=== PATIENT | male | born 1995 | race Caucasian/White ===

== ENCOUNTER 2017-07-01 19:39 | Inpatient (IN) | payer OTHER ==
[~2017-07-01] VITALS: Ht 195.6 cm; Wt 111.4 kg
[~2017-07-01 19:39] MED LIST: MORPHINE SULFATE 4 MG/ML INJ IV PUSH ONE; ONDANSETRON HCL 4 MG/2 ML VIAL IV PUSH ONE; Z.0.NO CURRENT MEDS
[2017-07-01 19:40] VITALS: O2SAT 100
[2017-07-01] MEDS ORDERED: ONDANSETRON HCL 4 MG/2 ML VIAL ONE (19:43)
[2017-07-01] MEDS ORDERED: PROPOFOL 200 MG/20 ML AMP ONE (19:45)
[2017-07-01] MEDS ORDERED: IOHEXOL 350 MG/ML 10 ML VIAL (for RAD DIAG) IV ONE (20:04)
[2017-07-01 20:06] LABS: AUTOMATED NEUTROPHIL # 12.3 TH/MM3 (1.8-7.7); BASOPHIL # 0.1 TH/MM3 (0-0.2); BASOPHIL % 0.3 % (0.0-2.0); EOSINOPHIL # 0.1 TH/MM3 (0-0.4); EOSINOPHIL % 0.9 % (0.0-4.0); HEMATOCRIT 43.2 % (39.0-51.0); HEMO FLAGS DIFF FINAL; LYMPH % 16.9 % (9.0-44.0); LYMPHOCYTE # 2.8 TH/MM3 (1.0-4.8); MEAN CELL VOLUME 88.6 FL (80.0-100.0); MEAN CORPUSCULAR HEMOGLOBIN 30.1 PG (27.0-34.0); MEAN CORPUSCULAR HGB CONC 33.9 % (32.0-36.0); MONO % 6.9 % (0.0-8.0); PLATELET COUNT 254 TH/MM3 (150-450); RED BLOOD COUNT 4.87 MIL/MM3 (4.50-5.90); WHITE BLOOD COUNT 16.4 TH/MM3 (4.0-11.0)
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
[2017-07-01 20:14] LABS: I-STAT POTASSIUM 3.7 MMOL/L (3.5-4.9)
[2017-07-01] MEDS ORDERED: HYDROmorphone HCL PF 1 MG/ML VIAL IVP PRN (20:15)
[2017-07-01] MEDS ORDERED: CHLORHEXIDINE GLUCONATE 2 % 1 PACK (2 CLOTHS) TOP PRN (20:15)
[2017-07-01] MEDS ORDERED: LIDOCAINE HCL 1% 50 ML VIAL INFIL ONE (20:15)
[2017-07-01] MEDS ORDERED: MISCELLANEOUS NURSING INFORMATION XX SCH (20:15)
[2017-07-01 20:16] VITALS: RESP 23; O2SAT 100
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
[2017-07-01 20:37] LABS: APTT (PATIENT) 22.4 SEC (24.3-30.1); PROTHROMBIN TIME - PATIENT 11.1 SEC (9.8-11.6)
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
[2017-07-01 21:00] VITALS: BP 166/68; PULSE 90; RESP 22; O2SAT 98
[2017-07-01] MEDS: DOCUSATE SODIUM 100 MG CAP PO SCH (21:00)
[2017-07-01] MEDS: LACTATED RINGER'S 1000 ML INJ 1,000 ML IV SCH (21:20)
[2017-07-01] MEDS: HYDROmorphone HCL PF 1 MG/ML VIAL IVP PRN ×2 (21:20→22:46)
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
[2017-07-01] MEDS: LIDOCAINE HCL 5% PATCH T-DERMAL SCH (23:00)
[2017-07-01 23:25] VITALS: TEMP 99.8
[2017-07-01 23:55] VITALS: PULSE 105
[2017-07-02] VITALS (9 sets, daily range): BP systolic 114–150; BP diastolic 53–94; PULSE 104–126; RESP 18–19; TEMP 96.9–101.2; O2SAT 92–99
[2017-07-02] MEDS: HYDROmorphone HCL PF 1 MG/ML VIAL IVP PRN ×3 (00:50→05:58)
[2017-07-02] MEDS ORDERED: CHLORHEXIDINE GLUCONATE 2 % 1 PACK (2 CLOTHS) TOP SCH (04:00)
[2017-07-02] MEDS ORDERED: LACTATED RINGER'S 1000 ML IV PRN (04:30)
[2017-07-02] MEDS ORDERED: SODIUM CHLORID 0.9% 500 ML IV PRN (04:30)
[2017-07-02] MEDS ORDERED: INSULIN HUMAN REGULAR 1,000 UNITS/10 ML VIAL SQ PRN (04:30)
[2017-07-02] MEDS ORDERED: METOPROLOL TARTRATE 25 MG TAB PO PRN (04:30)
[2017-07-02] MEDS ORDERED: POVIDONE IODINE 5% (ANTISEPSIS KIT) 4 APPLICATIONS EACH NARE PRN (04:30)
[2017-07-02] MEDS ORDERED: CHLORHEXIDINE GLUCONATE 2 % 1 PACK (2 CLOTHS) TOPICAL PRN (04:30)
[2017-07-02] MEDS: LACTATED RINGER'S 1000 ML INJ 1,000 ML IV SCH ×3 (05:38→05:58)
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
[2017-07-02] MEDS ORDERED: fentaNYL CITRATE 250 MCG/5 ML AMP ONE (07:22)
[2017-07-02] MEDS ORDERED: ACETAMINOPHEN 1000 MG/100 ML VIAL IV ONE (07:22)
[2017-07-02] MEDS ORDERED: MIDAZOLAM HCL 2 MG/2 ML VIAL ONE ×2 (07:25→07:43)
[2017-07-02] MEDS ORDERED: MORPHINE SULFATE 4 MG/ML INJ ONE (07:43)
[2017-07-02] MEDS ORDERED: PANTOPRAZOLE SODIUM 40 MG VIAL IV PUSH SCH (08:00)
[2017-07-02] MEDS ORDERED: VANCOMYCIN HCL 1000 MG VIAL ONE (08:24)
[2017-07-02] MEDS ORDERED: ceFAZolin INJ 1,000 MG VIAL ONE (08:24)
[2017-07-02] MEDS ORDERED: GENTAMICIN SULFATE 80 MG/2 ML VIAL ONE (08:25)
[2017-07-02] MEDS ORDERED: BUPIVACAINE/EPINEPHRINE 0.5% 50 ML VIAL ONE (08:25)
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
[2017-07-02] MEDS: DOCUSATE SODIUM 100 MG CAP PO SCH (09:00)
[2017-07-02] MEDS ORDERED: LACTATED RINGER'S 1000 ML INJ 1,000 ML IV SCH (09:43)
[2017-07-02] MEDS ORDERED: diphenhydrAMINE HCL 25 MG CAP PO PRN (09:45)
[2017-07-02] MEDS ORDERED: ONDANSETRON HCL 4 MG/2 ML VIAL IVP PRN (09:45)
--- NOTE | 2017-07-02 09:51 | PD.OP ---
cc: Justin Mejia MD Operative Report Date of Surgery: Jul 02, 2017 Preoperative Diagnosis: Displaced right tibia shaft fracture Postoperative Diagnosis: Procedure: Reduction and intramedullary nail fixation right tibia Anesthesia: Gen. Surgeon: Justin Mejia [employer] Coordinator(s): DEEPTI Sainz PA-C The surgical procedure was assisted by my physician billing assistant. My P.A. presence was necessary throughout this case for the manipulation and positioning of the surgical extremity. My P.A. was assisting me throughout the duration of this procedure. The skill set of a physician billing assistant was medically necessary to complete this procedure. During the surgical case the surgical dental assistant was working at the back table and the physician billing assistant was directly assisting me. Operation and Findings: Implants: synthes 405 mm x [11]mm tibial nail Plan of activity: Toe-touch weightbearing bilateral lower extremity Patient was seen and examined preoperatively. An informed consent was obtained from patient after detailed discussion of risk and benefits. Risks of surgery include bleeding, infection, painful hardware, nonunion, malunion, leg length discrepancy, need for hardware removal, and medical complications associated with anesthesia including blood clots, stroke, heart attack, and were discussed. Operative site was marked. Patient was brought to the operating room placed on or table. Patient received IV antibiotics and was given IV sedation GETA. Right leg was prepped with alcohol Hibiclens and draped in usual sterile fashion. Timeout procedure was performed Procedure began with reduction of fracture. 2 small incisions were made around the fracture site. A percutaneous clamp was placed. Traction was applied. Fracture was reduced. There was comminution of the fracture. The fracture reduced and excellent alignment was achieved. Fracture clamp was used to aid in reduction. Next a 3 cm incision was made proximal to the patella. Quadriceps tendon was split in line with fibers. Cannulas were placed in the patellofemoral joint to protect the articular surface at all times. A guidepin was placed into the tibia and advanced in the tibial canal. Fluoroscopy was used to confirm appropriate guidepin placement. An opening reamer was used to open the tibial canal. A ball-tipped guidewire was advanced down the tibial canal. Guidepin was passed across the fracture site into the center of the distal tibia. Fluoroscopy confirmed guidepin placement. The nail length was now measured. The fracture was now held in a reduced position and the canal was reamed. The canal was reamed up to appropriate size. A Synthes nail was now selected. Next the nail was fully seated. At this point the fracture displaced slightly. The nail was partially removed. A blocking screw was now placed along the proximal aspect of the distal segment to correct this displacement. The nail was now fully seated again. The fracture remained in excellent alignment. Using perfect [place] technique 2 distal interlocking screws were placed. Using the insertion handle as a guide 2 proximal interlocking screws were placed. Fluoroscopy confirmed excellent of fracture with well-placed hardware. Incisions and the knee joint were thoroughly irrigated with sterile saline. Fascia was closed with #1 Vicryl, subcutaneous tissues closed with 3-0 Vicryl and skin was closed with charbel. Sterile dressings were applied. Patient was awakened and transferred to recovery in stable condition. Justin Mejia MD Jul 02, 2017 09:51
[2017-07-02] MEDS ORDERED: *MEPERIDINE 25 MG INJ VIAL PERIprocedural Use ONLY ONE (10:08)
[2017-07-02] MEDS ORDERED: *LABETALOL HCL 100 MG/20 ML VIAL PERIprocedural Use ONLY ONE (10:14)
[2017-07-02] MEDS ORDERED: ERGOCALCIFEROL (VIT D2) 50,000 UNIT CAP PO SCH (11:00)
[2017-07-02] MEDS ORDERED: DO NOT ADM ANY ANTICOAGULANT DRUGS PRN (11:45)
[2017-07-02] MEDS: MORPHINE SULFATE 4 MG/ML INJ IV PUSH PRN ×3 (11:57→23:10)
[2017-07-02] MEDS: LIDOCAINE HCL 5% PATCH T-DERMAL SCH (11:57)
[2017-07-02] MEDS: CALCIUM/VITAMIN D 250 MG/125 U TAB PO SCH ×2 (11:58→17:48)
[2017-07-02] MEDS: ceFAZolin 2 GM PREMIX 50 ML IV SCH ×2 (11:58→21:42)
[2017-07-02] MEDS ORDERED: ONDANSETRON HCL 4 MG/2 ML VIAL IV PUSH ONE (12:00)
[2017-07-02] MEDS ORDERED: NEOSTIGMINE 3 MG/3 ML SYR IV ONE (12:00)
[2017-07-02] MEDS ORDERED: LACTATED RINGER'S 1000 ML INJ 2,000 ML IV ONE (12:00)
[2017-07-02] MEDS ORDERED: PROPOFOL 200 MG/20 ML AMP IV ONE (12:00)
[2017-07-02] MEDS ORDERED: platform walker (12:06)
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
--- NOTE | 2017-07-02 14:27 | HHI.PR ---
Subjective Subjective Notes S/P Right tibia IM nail Pain controlled Objective Vitals/I&O Vital Signs Date Time Temp Pulse Resp B/P Pulse Ox O2 Delivery O2 Flow Rate FiO2 07/02/17 11:15 97.5 104 18 150/94 99 07/02/17 10:45 Nasal Cannula 2 Labs Laboratory Tests Test 07/01/17 07/01/17 07/02/17 19:45 22:03 06:15 White Blood Count 16.4 Red Blood Count 4.87 Hemoglobin 14.7 Bedside Hemoglobin 12.9 Hematocrit 43.2 Bedside Hematocrit 38.0 Mean Corpuscular Volume 88.6 Mean Corpuscular Hemoglobin 30.1 Mean Corpuscular Hemoglobin 33.9 Concent Red Cell Distribution Width 13.0 Platelet Count 254 Mean Platelet Volume 7.5 Neutrophils (%) (Auto) 75.0 Lymphocytes (%) (Auto) 16.9 Monocytes (%) (Auto) 6.9 Eosinophils (%) (Auto) 0.9 Basophils (%) (Auto) 0.3 Neutrophils # (Auto) 12.3 Lymphocytes # (Auto) 2.8 Monocytes # (Auto) 1.1 Eosinophils # (Auto) 0.1 Basophils # (Auto) 0.1 CBC Comment DIFF FINAL Differential Comment Prothrombin Time 11.1 Prothromb Time International 1.0 Ratio Activated Partial 22.4 Thromboplast Time Bedside Sodium 143 Bedside Potassium 3.7 Bedside Chloride 109 Bedside Blood Urea Nitrogen 14 Bedside Creatinine 1.1 Bedside Glucose 90 Ethyl Alcohol Level 169 Blood Type O POSITIVE Antibody Screen NEGATIVE Crossmatch Leukocyte-Reduced Red Blood Cells Blood Bank Comment Antibody Identification Non-Specific Cold Agglutinin Nasal Screen MRSA (PCR) MRSA NOT DETECTED Radiology Last Impressions Chest X-Ray 07/02/17 0600 Signed Impressions: Service Date/Time: Sunday, July 02, 2017 05:52 - CONCLUSION: No acute disease. Tony Tolentino MD Pelvis X-Ray 07/01/171941 Signed Impressions: Service Date/Time: Saturday, July 01, 2017 19:07 - CONCLUSION: 1. See CT report. Sacral and acetabular fracture not well evaluated. Viraj Worthy MD Head CT 07/01/171941 Signed Impressions: Service Date/Time: Saturday, July 01, 2017 19:56 - CONCLUSION: 1. No acute intracranial abnormalities. Viraj Worthy MD Chest CT 07/01/171941 Signed Impressions: Service Date/Time: Saturday, July 01, 2017 20:03 - CONCLUSION: 1. Mildly displaced sternal fracture with mediastinal hematoma anteriorly measuring up to about 1.8 cm in thickness. No evidence for traumatic aortic injury. No pneumothorax or hemothorax. Viraj Worthy MD Cervical Spine CT 07/01/171941 Signed Impressions: Service Date/Time: Saturday, July 01, 2017 19:56 - CONCLUSION: 1. Nondisplaced fracture through left lateral mass of C6 extending into the left pedicle. No other cervical spine fractures. No spondylolisthesis. Viraj Worthy MD Abdomen/Pelvis CT 07/01/171941 Signed Impressions: Service Date/Time: Saturday, July 01, 2017 20:03 - CONCLUSION: 1. Relatively nondisplaced fractures through the right sacral ala and left acetabulum. No dislocation. No solid visceral injury identified within the abdomen or pelvis. Viraj Worthy MD Wrist X-Ray 07/01/17 Signed Impressions: Service Date/Time: Saturday, July 01, 2017 21:25 - CONCLUSION: 1. Mildly displaced scaphoid or navicular fracture. Fracture distal radius. Viraj Worthy MD Tibia/Fibula X-Ray 07/01/17 Signed Impressions: Service Date/Time: Saturday, July 01, 2017 19:07 - CONCLUSION: 1. Distal tibial and fibular fractures. Viraj Worthy MD Maxillofacial CT 07/01/17 Signed Impressions: Service Date/Time: Saturday, July 01, 2017 19:56 - CONCLUSION: 1. No acute findings. Small retention cysts in the maxillary sinuses. Viraj Worthy MD Knee X-Ray 07/01/17 Signed Impressions: Service Date/Time: Saturday, July 01, 2017 19:07 - CONCLUSION: 1. No displaced fracture identified at the right knee. Viraj Worthy MD Hand X-Ray 07/01/17 Signed Impressions: Service Date/Time: Saturday, July 01, 2017 19:07 - CONCLUSION: 1. Fractures of distal radius and midpole scaphoid. No dislocation. Viraj Worthy MD Narrative Exam GENERAL: 21 year old well-nourished, well developed male lying in bed with cervical collar on. SKIN: Warm and dry. Laceration noted to lip. HEAD: Normocephalic. ENT: No nasal bleeding or discharge. Mucous membranes pink and moist. NECK: Trachea midline. No JVD. [place] J collar in place. CARDIOVASCULAR: Regular rate and rhythm. RESPIRATORY: No accessory muscle use. Lungs clear to auscultation. Breath sounds equal bilaterally. GASTROINTESTINAL: Abdomen soft, non-tender, nondistended. + BS. MUSCULOSKELETAL: Extremities without cyanosis, or edema. RUE and RLE soft splint in place. MAEW. NEUROLOGICAL: Awake and alert. Normal speech. A/P Assessment and Plan INJURIES: C6 fx Sternal fx RIGHT sacral ala fx (non-op) LEFT acetabulum fx (non-op) RIGHT tib/fib fx RIGHT distal radius and scaphoid fx (non-op) RIGHT dorsal hand lac Diet: Regular Pulm: IS Pain: Toradol IV, Lidoderm patch, Morphine IV, [place] Activity: OOB. PT and OT ordered. (NWB RUE, TTWB BLE for transfers) GI: Pepcid Bowel: Mica-colace 2 tabs, Lactulose PRN LBM 0 DVT: SCDs, Lovenox 30 BID C6 fx Neurosurgery consulted Nonoperative management Maintain cervical collar Pain control OOBPT Sternal fx Supportive care Echocardiogram pending Pain control Pulmonary toileting RIGHT sacral ala fx, LEFT acetabulum fx Orthopedics consulted Nonoperative management Pain control OOBPT TTWB BLE for transfers Lovenox RIGHT tib/fib fx Orthopedics consulted S/P Right tibia IM nail Pain control OOBPT TTWB BLE for transfers RIGHT distal radius and scaphoid fx, RIGHT dorsal hand lac Orthopedics consulted Non-operative management Pain control Hand sx consulted- awaiting evaluation OT NWB RUE Plan of care discussed with patient and family at bedside. Case management consulted to assist with discharge planning. Remarks seen and examined with DIE FORGER-agree with assessment and plan s/p IM nailing right tibia NS input appreciated ortho input appreciated monitor HR pain control Fiorella Hodges Jul 02, 2017 14:26 Allie Tirado MD Jul 03, 2017 16:24
[2017-07-02] MEDS ORDERED: LACTULOSE SYRUP 20 GM/30 ML CUP PO PRN (14:30)
[2017-07-02] MEDS: KETOROLAC TROMETHAMINE 30 MG/ML (IVP) VIAL IVP SCH ×2 (15:00→21:45)
--- NOTE | 2017-07-02 15:10 | RADRPT ---
EXAM DATE/TIME: 07/02/2017 14:25 [facility] COMPARISON: No previous studies available for comparison. INDICATIONS : Left ankle pain. MEDICAL HISTORY : None. SURGICAL HISTORY : None. ENCOUNTER: Initial ACUITY: 2 days PAIN SCORE: 7/10 LOCATION: Left ankle FINDINGS: Two view exam was performed of the left ankle. The bony structures are in normal alignment. Mild sof t tissue swelling is seen along the lateral malleolus. Bony structures are intact without evidence of fracture or dislocation. No radiopaque foreign bodies are seen. Bony mineralization is normal. CONCLUSION: Soft tissue swelling without evidence of acute fracture or dislocation. Leland Osborn MD on July 02, 2017 at 15:07 Board Certified Radiologist. This report was verified electronically.
--- NOTE | 2017-07-02 16:23 | EKG ---
Date Performed: 07/01/2017 Time Performed: 20:18:26 PTAGE: 89 years EKG: SINUS TACHYCARDIA ABNORMAL RHYTHM ECG NO PREVIOUS TRACING DOCTOR: Shawn Santoro Interpretating Date/Time 07/02/2017 16:20:22
[2017-07-02] MEDS: ACETAMINOPHEN/HYDROcodone 325 MG/10 MG TAB PO PRN (17:48)
--- NOTE | 2017-07-02 20:18 | RADRPT ---
EXAM DATE/TIME: 07/02/2017 08:53 [facility] COMPARISON: No previous studies available for comparison. INDICATIONS : Right tibia fracture repair with intermedullary juan. OR. MEDICAL HISTORY : None. SURGICAL HISTORY : None. ENCOUNTER: Initial ACUITY: 1 day PAIN SCORE: Non-responsive. LOCATION: Right tibia FINDINGS: Two view examination of the right tibia demonstrates juan fixation across a tibial shaft fracture. The re is also a fibular shaft fracture. CONCLUSION: 1. Juan fixation of a tibial shaft fracture. Viraj Worthy MD on July 02, 2017 at 20:13 Board Certified Radiologist. This report was verified electronically.
[2017-07-02] MEDS: VANCOMYCIN INJ 1,000 MG in SODIUM CHLOR 0.9% 250 ML INJ 250 ML IV SCH (21:44)
[2017-07-02] MEDS: DOCUSATE SODIUM 50 MG/SENNA 8.6 MG TAB PO SCH (21:45)
[2017-07-02 22:02] LABS: AUTOMATED NEUTROPHIL # 5.6 TH/MM3 (1.8-7.7); BASOPHIL % 0.3 % (0.0-2.0); EOSINOPHIL % 0.2 % (0.0-4.0); HEMATOCRIT 34.1 % (39.0-51.0); HEMO FLAGS DIFF FINAL; LYMPH % 14.9 % (9.0-44.0); LYMPHOCYTE # 1.2 TH/MM3 (1.0-4.8); MEAN CELL VOLUME 89.2 FL (80.0-100.0); MEAN CORPUSCULAR HEMOGLOBIN 30.7 PG (27.0-34.0); MEAN CORPUSCULAR HGB CONC 34.4 % (32.0-36.0); MONO % 12.9 % (0.0-8.0); NEUT % 71.7 % (16.0-70.0); PLATELET COUNT 156 TH/MM3 (150-450); RED BLOOD COUNT 3.83 MIL/MM3 (4.50-5.90); RED CELL DISTRIBUTION WIDTH 12.8 % (11.6-17.2); WHITE BLOOD COUNT 7.8 TH/MM3 (4.0-11.0)
[2017-07-02 22:11] LABS: BICARBONATE 27.8 MEQ/L (21.0-32.0); POTASSIUM 3.8 MEQ/L (3.5-5.1)
[2017-07-02] MEDS: ACETAMINOPHEN 325 MG TAB PO PRN (23:20)
[2017-07-03] VITALS (7 sets, daily range): BP systolic 129–142; BP diastolic 64–75; PULSE 102–127; RESP 18–20; TEMP 96.8–100.7; O2SAT 91–99
--- NOTE | 2017-07-03 06:54 | PD.ORT.PN ---
Subjective Subjective Remarks s/p Right tibia IMN s/p right scaphoid/radial styloid fx s/p left Acetabulum and right sacral fxs -doing well. states pain but controlled Objective Vitals Vital Signs Date Time Temp Pulse Resp B/P Pulse Ox O2 Delivery O2 Flow Rate FiO2 07/03/17 02:45 98.0 102 18 129/66 94 07/02/17 23:20 101.2 07/02/17 22:55 99.9 126 18 136/61 92 07/02/17 20:10 98.0 117 19 114/53 92 07/02/17 16:00 96.9 118 18 134/64 92 07/02/17 12:18 97 Nasal Cannula 2.00 07/02/17 11:15 97.5 104 18 150/94 99 07/02/17 10:45 98.8 93 16 166/79 100 Nasal Cannula 2 07/02/17 10:30 96 18 165/78 96 Nasal Cannula 3 07/02/17 10:15 103 19 184/89 96 Nasal Cannula 3 07/02/17 10:08 98.9 106 20 186/96 94 Nasal Cannula 3 07/02/17 07:22 99.2 125 18 149/83 93 I/O 07/02/17 07/02/17 07/02/17 07/03/17 07/03/17 07/03/17 06:59 14:59 22:59 06:59 14:59 22:59 Intake Total 964 ml 2151 ml 360 ml 480 ml Output Total 550 ml 900 ml 900 ml Balance 964 ml 1601 ml -540 ml -420 ml Intake Oral 0 ml 480 ml 360 ml 480 ml IV Total 964 ml 471 ml Other 1200 ml Output Urine Total 500 ml 900 ml 900 ml Estimated Blood Loss 50 ml # Voids 1 # Bowel Movements 0 0 0 0 Result Diagram: 07/02/17204207/02/172042 Imaging Last 24 hours Impressions Chest X-Ray 07/02/17 0600 Signed Impressions: Service Date/Time: Sunday, July 02, 2017 05:52 - CONCLUSION: No acute disease. Tony Tolentino MD Pelvis X-Ray 07/01/171941 Signed Impressions: Service Date/Time: Saturday, July 01, 2017 19:07 - CONCLUSION: 1. See CT report. Sacral and acetabular fracture not well evaluated. Viraj Worthy MD Head CT 07/01/171941 Signed Impressions: Service Date/Time: Saturday, July 01, 2017 19:56 - CONCLUSION: 1. No acute intracranial abnormalities. Viraj Worthy MD Chest X-Ray 07/01/171941 Signed Impressions: Service Date/Time: Saturday, July 01, 2017 19:07 - CONCLUSION: 1. No acute findings. Dependent atelectasis in the lungs. Viraj Worthy MD Chest CT 07/01/171941 Signed Impressions: Service Date/Time: Saturday, July 01, 2017 20:03 - CONCLUSION: 1. Mildly displaced sternal fracture with mediastinal hematoma anteriorly measuring up to about 1.8 cm in thickness. No evidence for traumatic aortic injury. No pneumothorax or hemothorax. Viraj Worthy MD Cervical Spine CT 07/01/171941 Signed Impressions: Service Date/Time: Saturday, July 01, 2017 19:56 - CONCLUSION: 1. Nondisplaced fracture through left lateral mass of C6 extending into the left pedicle. No other cervical spine fractures. No spondylolisthesis. Viraj Worthy MD Abdomen/Pelvis CT 07/01/171941 Signed Impressions: Service Date/Time: Saturday, July 01, 2017 20:03 - CONCLUSION: 1. Relatively nondisplaced fractures through the right sacral ala and left acetabulum. No dislocation. No solid visceral injury identified within the abdomen or pelvis. Viraj Worthy MD Objective Remarks RUE: +sugar tong splint. NVI with good sensation to fingers. good finger extension. RLE: dressings clean and dry. intact. NVI. neg carol. stiffness to ankle dorsiflexion. Assessment & Plan Assessment and Plan 1) Left Nondisplaced Acetabulum Fx - nonop 2) Right Sacral fx - nonop 3) Right Radial Styloid fx - nonop 4) right Scaphoid Fx - nonop -NWB -maintain splint 5) Right Tibial shaft fx s/p IMN - POD 1 -TTWB BLE for transfers only -daily dressing changes right leg POD 2 -CM for rehab placement -lovenox for DVT prophylaxis Severo Bergeron Jul 03, 2017 06:54
[2017-07-03] MEDS ORDERED: XARE10TA PO (06:55)
[2017-07-03] MEDS ORDERED: WHEEMIS3 (06:55)
[2017-07-03] MEDS ORDERED: HYDR-3583 PO (06:55)
[2017-07-03] MEDS: KETOROLAC TROMETHAMINE 30 MG/ML (IVP) VIAL IVP SCH (06:58)
[2017-07-03] MEDS: ceFAZolin 2 GM PREMIX 50 ML IV SCH (06:59)
[2017-07-03] MEDS: MORPHINE SULFATE 4 MG/ML INJ IV PUSH PRN ×4 (07:08→20:34)
[2017-07-03] MEDS: DOCUSATE SODIUM 50 MG/SENNA 8.6 MG TAB PO SCH ×2 (08:57→20:35)
[2017-07-03] MEDS: VANCOMYCIN INJ 1,000 MG in SODIUM CHLOR 0.9% 250 ML INJ 250 ML IV SCH (08:57)
[2017-07-03] MEDS: CALCIUM/VITAMIN D 250 MG/125 U TAB PO SCH ×3 (08:57→17:29)
[2017-07-03] MEDS: ASCORBIC ACID 500 MG TAB PO SCH (08:57)
[2017-07-03] MEDS: CHOLECALCIFEROL (VIT D3) 1000 UNIT TAB PO SCH (08:57)
[2017-07-03] MEDS: FAMOTIDINE 20 MG TAB PO SCH ×2 (08:57→20:35)
[2017-07-03] MEDS: LIDOCAINE HCL 5% PATCH T-DERMAL SCH (09:00)
[2017-07-03] MEDS: ENOXAPARIN SODIUM 30 MG/0.3 ML SYRINGE SQ SCH ×2 (09:09→20:34)
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
[2017-07-03 09:36] LABS: AUTOMATED NEUTROPHIL # 7.6 TH/MM3 (1.8-7.7); BASOPHIL % 0.2 % (0.0-2.0); EOSINOPHIL % 0.5 % (0.0-4.0); HEMATOCRIT 31.7 % (39.0-51.0); HEMO FLAGS DIFF FINAL; LYMPH % 9.6 % (9.0-44.0); LYMPHOCYTE # 0.9 TH/MM3 (1.0-4.8); MEAN CELL VOLUME 88.6 FL (80.0-100.0); MEAN CORPUSCULAR HEMOGLOBIN 31.4 PG (27.0-34.0); MEAN CORPUSCULAR HGB CONC 35.4 % (32.0-36.0); MONO % 9.6 % (0.0-8.0); NEUT % 80.1 % (16.0-70.0); PLATELET COUNT 139 TH/MM3 (150-450); RED BLOOD COUNT 3.57 MIL/MM3 (4.50-5.90); RED CELL DISTRIBUTION WIDTH 12.6 % (11.6-17.2); WHITE BLOOD COUNT 9.4 TH/MM3 (4.0-11.0)
[2017-07-03 10:33] LABS: BICARBONATE 26.5 MEQ/L (21.0-32.0); POTASSIUM 3.9 MEQ/L (3.5-5.1)
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
--- NOTE | 2017-07-03 13:45 | HHI.PR ---
Subjective Subjective Notes OOB in cardiac chair Pain controlled Tachycardic and febrile overnight. + Troponin, EKG with sinus tachycardia. No CP Echo negative for cardiac contusion Objective Vitals/I&O Vital Signs Date Time Temp Pulse Resp B/P Pulse Ox O2 Delivery O2 Flow Rate FiO2 07/03/17 12:00 96.9 110 18 132/73 99 07/03/17 09:01 Nasal Cannula 2.00 Labs Laboratory Tests Test 07/02/17 07/03/17 07/03/17 20:43 01:19 08:59 White Blood Count 7.8 9.4 Red Blood Count 3.83 3.57 Hemoglobin 11.7 11.2 Hematocrit 34.1 31.7 Mean Corpuscular Volume 89.2 88.6 Mean Corpuscular Hemoglobin 30.7 31.4 Mean Corpuscular Hemoglobin 34.4 35.4 Concent Red Cell Distribution Width 12.8 12.6 Platelet Count 156 139 Mean Platelet Volume 7.6 8.0 Neutrophils (%) (Auto) 71.7 80.1 Lymphocytes (%) (Auto) 14.9 9.6 Monocytes (%) (Auto) 12.9 9.6 Eosinophils (%) (Auto) 0.2 0.5 Basophils (%) (Auto) 0.3 0.2 Neutrophils # (Auto) 5.6 7.6 Lymphocytes # (Auto) 1.2 0.9 Monocytes # (Auto) 1.0 0.9 Eosinophils # (Auto) 0.0 0.0 Basophils # (Auto) 0.0 0.0 CBC Comment DIFF FINAL DIFF FINAL Differential Comment Sodium Level 133 135 Potassium Level 3.8 3.9 Chloride Level 99 102 Carbon Dioxide Level 27.8 26.5 Anion Gap 6 7 Blood Urea Nitrogen 10 9 Creatinine 1.11 1.22 Estimat Glomerular Filtration 83 74 Rate Random Glucose 118 129 Calcium Level 7.8 8.2 Troponin I 1.20 Radiology Last Impressions Chest X-Ray 07/02/17 0600 Signed Impressions: Service Date/Time: Sunday, July 02, 2017 05:52 - CONCLUSION: No acute disease. Tony Tolentino MD Pelvis X-Ray 07/01/17 194 Signed Impressions: Service Date/Time: Saturday, July 01, 2017 19:07 - CONCLUSION: 1. See CT report. Sacral and acetabular fracture not well evaluated. Viraj Worthy MD Head CT 07/01/171941 Signed Impressions: Service Date/Time: Saturday, July 01, 2017 19:56 - CONCLUSION: 1. No acute intracranial abnormalities. Viraj Worthy MD Chest CT 07/01/171941 Signed Impressions: Service Date/Time: Saturday, July 01, 2017 20:03 - CONCLUSION: 1. Mildly displaced sternal fracture with mediastinal hematoma anteriorly measuring up to about 1.8 cm in thickness. No evidence for traumatic aortic injury. No pneumothorax or hemothorax. Viraj Worthy MD Cervical Spine CT 07/01/171941 Signed Impressions: Service Date/Time: Saturday, July 01, 2017 19:56 - CONCLUSION: 1. Nondisplaced fracture through left lateral mass of C6 extending into the left pedicle. No other cervical spine fractures. No spondylolisthesis. Viraj Worthy MD Abdomen/Pelvis CT 07/01/171941 Signed Impressions: Service Date/Time: Saturday, July 01, 2017 20:03 - CONCLUSION: 1. Relatively nondisplaced fractures through the right sacral ala and left acetabulum. No dislocation. No solid visceral injury identified within the abdomen or pelvis. Viraj Worthy MD Wrist X-Ray 07/01/17 Signed Impressions: Service Date/Time: Saturday, July 01, 2017 21:25 - CONCLUSION: 1. Mildly displaced scaphoid or navicular fracture. Fracture distal radius. Viraj Worthy MD Tibia/Fibula X-Ray 07/01/17 Signed Impressions: Service Date/Time: Saturday, July 01, 2017 19:07 - CONCLUSION: 1. Distal tibial and fibular fractures. Viraj Worthy MD Maxillofacial CT 07/01/17 Signed Impressions: Service Date/Time: Saturday, July 01, 2017 19:56 - CONCLUSION: 1. No acute findings. Small retention cysts in the maxillary sinuses. Viraj Worthy MD Knee X-Ray 07/01/17 Signed Impressions: Service Date/Time: Saturday, July 01, 2017 19:07 - CONCLUSION: 1. No displaced fracture identified at the right knee. Viraj Worthy MD Hand X-Ray 07/01/17 Signed Impressions: Service Date/Time: Saturday, July 01, 2017 19:07 - CONCLUSION: 1. Fractures of distal radius and midpole scaphoid. No dislocation. Viraj Worthy MD Narrative Exam GENERAL: 21 year old well-nourished, well developed male OOB in cardiac chair with cervical collar on. SKIN: Warm and dry. Laceration noted to lip. HEAD: Normocephalic. ENT: No nasal bleeding or discharge. Mucous membranes pink and moist. NECK: Trachea midline. No JVD. [place] J collar in place. CARDIOVASCULAR: Regular rate and rhythm. RESPIRATORY: No accessory muscle use. Lungs clear to auscultation. Breath sounds equal bilaterally. GASTROINTESTINAL: Abdomen soft, non-tender, nondistended. + BS. MUSCULOSKELETAL: Extremities without cyanosis, or edema. RUE and RLE soft splint in place. MAEW. NEUROLOGICAL: Awake and alert. Normal speech. A/P Assessment and Plan INJURIES: C6 fx Sternal fx RIGHT sacral ala fx (non-op) LEFT acetabulum fx (non-op) RIGHT tib/fib fx RIGHT distal radius and scaphoid fx (non-op) RIGHT dorsal hand lac Diet: Regular Pulm: IS Pain: Toradol IV, Lidoderm patch, Morphine IV, Reed Activity: OOB. PT and OT ordered. (NWB RUE, TTWB BLE for transfers) GI: Pepcid Bowel: Mica-colace 2 tabs, Lactulose PRN LBM 0 DVT: SCDs, Lovenox 30 BID C6 fx Neurosurgery consulted Nonoperative management Maintain cervical collar Pain control OOBPT Sternal fx Supportive care Echocardiogram negative for cardiac contusion Troponin 1.[address] with T wave inversion Pain control Pulmonary toileting RIGHT sacral ala fx, LEFT acetabulum fx Orthopedics consulted Nonoperative management Pain control OOBPT TTWB BLE for transfers Lovenox RIGHT tib/fib fx Orthopedics consulted S/P Right tibia IM nail Pain control OOBPT TTWB BLE for transfers RIGHT distal radius and scaphoid fx, RIGHT dorsal hand lac Orthopedics consulted Non-operative management Pain control Hand sx consulted- applied steri-strips to hand lac and agreed with non-op management OT NWB RUE Plan of care discussed with patient and family at bedside. Case management consulted to assist with discharge planning. Attending Statement The exam, history, and the medical decision-making described in the above note were completed with the assistance of the mid-level provider. I reviewed and agree with the findings presented. I attest that I had a [id number] encounter with the patient on the same day, and personally performed and documented my assessment and findings in the medical record. Neurologic Exam: no response to voice, GCS still significantly depressed and remains unchanged plan for [facility] neuro injury care Fiorella Hodges Jul 03, 2017 13:45 Ender Corona MD Jul 03, 2017 22:04
--- NOTE | 2017-07-03 15:34 | EKG ---
Date Performed: 07/03/2017 Time Performed: 00:29:52 PTAGE: 22 years EKG: Sinus tachycardia Inferior T wave changes may be normal for age Borderline ECG PREVIOUS TRACING : 07/01/2017 20.18 DOCTOR: Jennifer Syed Interpretating Date/Time 07/03/2017 15:33:00
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
[2017-07-04] VITALS (9 sets, daily range): BP systolic 127–158; BP diastolic 58–84; PULSE 102–124; RESP 18–20; TEMP 96.3–99.9; O2SAT 90–96
[2017-07-04] MEDS: ACETAMINOPHEN 325 MG TAB PO PRN ×2 (00:15→18:50)
[2017-07-04] MEDS: MORPHINE SULFATE 4 MG/ML INJ IV PUSH PRN ×2 (00:15→06:11)
--- NOTE | 2017-07-04 07:09 | PD.ORT.PN ---
Subjective Subjective Remarks Pain controlled no new complaints Objective Vitals Vital Signs Date Time Temp Pulse Resp B/P Pulse Ox O2 Delivery O2 Flow Rate FiO2 07/04/17 03:33 97.6 111 19 137/65 91 07/04/17 00:52 99.9 124 20 127/58 91 07/03/17 20:45 92 Nasal Cannula 3.00 07/03/17 20:16 96.8 127 20 134/64 91 07/03/17 12:00 96.9 110 18 132/73 99 07/03/17 09:01 97 Nasal Cannula 2.00 07/03/17 08:00 100.7 110 18 142/75 97 I/O 07/03/17 07/03/17 07/03/17 07/04/17 07/04/17 07/04/17 07:00 15:00 23:00 07:00 15:00 23:00 Intake Total 480 ml 2097 ml 720 ml 480 ml Output Total 900 ml 850 ml Balance -420 ml 2097 ml -130 ml 480 ml Intake Oral 480 ml 960 ml 720 ml 480 ml IV Total 1137 ml Output Urine Total 900 ml 850 ml # Voids 3 3 # Bowel Movements 0 0 0 0 Result Diagram: 07/03/17 0859 07/03/17 0859 Imaging Last 24 hours Impressions Chest X-Ray 07/02/17 0600 Signed Impressions: Service Date/Time: Sunday, July 02, 2017 05:52 - CONCLUSION: No acute disease. Tony Tolentino MD Pelvis X-Ray 07/01/171941 Signed Impressions: Service Date/Time: Saturday, July 01, 2017 19:07 - CONCLUSION: 1. See CT report. Sacral and acetabular fracture not well evaluated. Viraj Worthy MD Head CT 07/01/171941 Signed Impressions: Service Date/Time: Saturday, July 01, 2017 19:56 - CONCLUSION: 1. No acute intracranial abnormalities. Viraj Worthy MD Chest X-Ray 07/01/171941 Signed Impressions: Service Date/Time: Saturday, July 01, 2017 19:07 - CONCLUSION: 1. No acute findings. Dependent atelectasis in the lungs. Viraj Worthy MD Chest CT 07/01/171941 Signed Impressions: Service Date/Time: Saturday, July 01, 2017 20:03 - CONCLUSION: 1. Mildly displaced sternal fracture with mediastinal hematoma anteriorly measuring up to about 1.8 cm in thickness. No evidence for traumatic aortic injury. No pneumothorax or hemothorax. Viraj Worthy MD Cervical Spine CT 07/01/171941 Signed Impressions: Service Date/Time: Saturday, July 01, 2017 19:56 - CONCLUSION: 1. Nondisplaced fracture through left lateral mass of C6 extending into the left pedicle. No other cervical spine fractures. No spondylolisthesis. Viraj Worthy MD Abdomen/Pelvis CT 07/01/171941 Signed Impressions: Service Date/Time: Saturday, July 01, 2017 20:03 - CONCLUSION: 1. Relatively nondisplaced fractures through the right sacral ala and left acetabulum. No dislocation. No solid visceral injury identified within the abdomen or pelvis. Viraj Worthy MD Objective Remarks RUE: +sugar tong splint. NVI with good sensation to fingers. good finger extension. RLE: dressings clean and dry. intact. NVI. neg carol. stiffness to ankle dorsiflexion. Assessment & Plan Assessment and Plan 1) Left Nondisplaced Acetabulum Fx - nonop 2) Right Sacral fx - nonop 3) Right Radial Styloid fx - nonop 4) right Scaphoid Fx - nonop -NWB -maintain splint 5) Right Tibial shaft fx s/p IMN - POD 2 -TTWB BLE for transfers only -daily dressing changes right leg -lovenox for DVT prophylaxis Discharge planning, orthopedically cleared for dischargerehabilitation placement Follow-up with Dr. Mejia or PA in 2 weeks Ayo Miguel Jr. Jul 04, 2017 07:09
[2017-07-04] MEDS: LIDOCAINE HCL 5% PATCH T-DERMAL SCH (09:33)
[2017-07-04] MEDS: ASCORBIC ACID 500 MG TAB PO SCH (09:34)
[2017-07-04] MEDS: CALCIUM/VITAMIN D 250 MG/125 U TAB PO SCH ×3 (09:34→17:43)
[2017-07-04] MEDS: CHOLECALCIFEROL (VIT D3) 1000 UNIT TAB PO SCH (09:34)
[2017-07-04] MEDS: ENOXAPARIN SODIUM 30 MG/0.3 ML SYRINGE SQ SCH ×2 (09:34→20:32)
[2017-07-04] MEDS: DOCUSATE SODIUM 50 MG/SENNA 8.6 MG TAB PO SCH ×2 (09:35→20:32)
[2017-07-04] MEDS: FAMOTIDINE 20 MG TAB PO SCH ×2 (09:35→20:32)
[2017-07-04] MEDS: ACETAMINOPHEN/HYDROcodone 325 MG/10 MG TAB PO PRN ×4 (09:35→20:34)
[2017-07-04] MEDS ORDERED: fentaNYL 75 MCG/HR PATCH T-DERMAL SCH (11:00)
[2017-07-04] MEDS ORDERED: LACTULOSE SYRUP 20 GM/30 ML CUP PO ONE (12:30)
--- NOTE | 2017-07-04 12:42 | HHI.PR ---
Subjective Subjective Notes Painful, still requiring IV Morphine Ortho cleared for discharge Objective Vitals/I&O Vital Signs Date Time Temp Pulse Resp B/P Pulse Ox O2 Delivery O2 Flow Rate FiO2 07/04/17 11:49 98.7 108 18 150/75 95 07/04/17 11:16 Nasal Cannula 3.00 Labs Laboratory Tests Test 07/01/17 07/01/17 07/02/17 07/03/17 19:45 22:03 06:15 01:19 Bedside Hemoglobin 12.9 G/DL Bedside Hematocrit 38.0 % Prothrombin Time 11.1 SEC Prothromb Time International 1.0 RATIO Ratio Activated Partial 22.4 SEC Thromboplast Time Bedside Sodium 143 MMOL/L Bedside Potassium 3.7 MMOL/L Bedside Chloride 109 MMOL/L Bedside Blood Urea Nitrogen 14 MG/DL Bedside Creatinine 1.1 MG/DL Bedside Glucose 90 MG/DL Ethyl Alcohol Level 169 MG/DL Crossmatch Leukocyte-Reduced Red Blood Cells Blood Type O POSITIVE Antibody Screen NEGATIVE Blood Bank Comment Antibody Identification Non-Specific Cold Agglutinin Nasal Screen MRSA (PCR) MRSA NOT DETECTED Troponin I 1.20 NG/ML Test 07/03/17 08:59 White Blood Count 9.4 TH/MM3 Red Blood Count 3.57 MIL/MM3 Hemoglobin 11.2 GM/DL Hematocrit 31.7 % Mean Corpuscular Volume 88.6 FL Mean Corpuscular Hemoglobin 31.4 PG Mean Corpuscular Hemoglobin 35.4 % Concent Red Cell Distribution Width 12.6 % Platelet Count 139 TH/MM3 Mean Platelet Volume 8.0 FL Neutrophils (%) (Auto) 80.1 % Lymphocytes (%) (Auto) 9.6 % Monocytes (%) (Auto) 9.6 % Eosinophils (%) (Auto) 0.5 % Basophils (%) (Auto) 0.2 % Neutrophils # (Auto) 7.6 TH/MM3 Lymphocytes # (Auto) 0.9 TH/MM3 Monocytes # (Auto) 0.9 TH/MM3 Eosinophils # (Auto) 0.0 TH/MM3 Basophils # (Auto) 0.0 TH/MM3 CBC Comment DIFF FINAL Differential Comment Sodium Level 135 MEQ/L Potassium Level 3.9 MEQ/L Chloride Level 102 MEQ/L Carbon Dioxide Level 26.5 MEQ/L Anion Gap 7 MEQ/L Blood Urea Nitrogen 9 MG/DL Creatinine 1.22 MG/DL Estimat Glomerular Filtration 74 ML/MIN Rate Random Glucose 129 MG/DL Calcium Level 8.2 MG/DL Radiology Last Impressions Chest X-Ray 07/02/17 0600 Signed Impressions: Service Date/Time: Sunday, July 02, 2017 05:52 - CONCLUSION: No acute disease. Tony Tolentino MD Pelvis X-Ray 07/01/171941 Signed Impressions: Service Date/Time: Saturday, July 01, 2017 19:07 - CONCLUSION: 1. See CT report. Sacral and acetabular fracture not well evaluated. Viraj Worthy MD Head CT 07/01/171941 Signed Impressions: Service Date/Time: Saturday, July 01, 2017 19:56 - CONCLUSION: 1. No acute intracranial abnormalities. Viraj Worthy MD Chest CT 07/01/171941 Signed Impressions: Service Date/Time: Saturday, July 01, 2017 20:03 - CONCLUSION: 1. Mildly displaced sternal fracture with mediastinal hematoma anteriorly measuring up to about 1.8 cm in thickness. No evidence for traumatic aortic injury. No pneumothorax or hemothorax. Viraj Worthy MD Cervical Spine CT 07/01/171941 Signed Impressions: Service Date/Time: Saturday, July 01, 2017 19:56 - CONCLUSION: 1. Nondisplaced fracture through left lateral mass of C6 extending into the left pedicle. No other cervical spine fractures. No spondylolisthesis. Viraj Worthy MD Abdomen/Pelvis CT 07/01/171941 Signed Impressions: Service Date/Time: Saturday, July 01, 2017 20:03 - CONCLUSION: 1. Relatively nondisplaced fractures through the right sacral ala and left acetabulum. No dislocation. No solid visceral injury identified within the abdomen or pelvis. Viraj Worthy MD Wrist X-Ray 07/01/17 Signed Impressions: Service Date/Time: Saturday, July 01, 2017 21:25 - CONCLUSION: 1. Mildly displaced scaphoid or navicular fracture. Fracture distal radius. Viraj Worthy MD Tibia/Fibula X-Ray 07/01/17 Signed Impressions: Service Date/Time: Saturday, July 01, 2017 19:07 - CONCLUSION: 1. Distal tibial and fibular fractures. Viraj Worthy MD Maxillofacial CT 07/01/17 Signed Impressions: Service Date/Time: Saturday, July 01, 2017 19:56 - CONCLUSION: 1. No acute findings. Small retention cysts in the maxillary sinuses. Viraj Worthy MD Knee X-Ray 07/01/17 0000 Signed Impressions: Service Date/Time: Saturday, July 01, 2017 19:07 - CONCLUSION: 1. No displaced fracture identified at the right knee. Viraj Worthy MD Hand X-Ray 07/01/17 0000 Signed Impressions: Service Date/Time: Saturday, July 01, 2017 19:07 - CONCLUSION: 1. Fractures of distal radius and midpole scaphoid. No dislocation. Viraj Worthy MD Narrative Exam GENERAL: 21 year old well-nourished, well developed male OOB in cardiac chair with cervical collar on. SKIN: Warm and dry. Laceration noted to lip. HEAD: Normocephalic. ENT: No nasal bleeding or discharge. Mucous membranes pink and moist. NECK: Trachea midline. No JVD. D[place] J collar in place. CARDIOVASCULAR: Regular rate and rhythm. RESPIRATORY: No accessory muscle use. Lungs clear to auscultation. Breath sounds equal bilaterally. GASTROINTESTINAL: Abdomen soft, non-tender, nondistended. + BS. MUSCULOSKELETAL: Extremities without cyanosis, or edema. RUE and RLE soft splint in place. MAEW. NEUROLOGICAL: Awake and alert. Normal speech. A/P Assessment and Plan INJURIES: C6 fx Sternal fx RIGHT sacral ala fx (non-op) LEFT acetabulum fx (non-op) RIGHT tib/fib fx RIGHT distal radius and scaphoid fx (non-op) RIGHT dorsal hand lac Diet: Regular, tolerating Pulm: IS Pain: Toradol IV, Lidoderm patch, [place]. Added Fentanyl patch for better pain control. DC Morphine IV. Activity: OOB. PT and OT ordered. (NWB RUE, TTWB BLE for transfers) GI: Pepcid Bowel: Mica-colace 2 tabs, Lactulose PRN No BM yet. Lactulose x1 today DVT: SCDs, Lovenox 30 BID C6 fx Neurosurgery consulted Nonoperative management Maintain cervical collar Pain control OOBPT MRI C-spine Sternal fx Supportive care Echocardiogram negative for cardiac contusion Troponin 1.[address] with T wave inversion Pain control Pulmonary toileting RIGHT sacral ala fx, LEFT acetabulum fx Orthopedics consulted Nonoperative management Pain control OOBPT TTWB BLE for transfers Lovenox RIGHT tib/fib fx Orthopedics consulted S/P Right tibia IM nail Pain control OOBPT TTWB BLE for transfers RIGHT distal radius and scaphoid fx, RIGHT dorsal hand lac Orthopedics consulted Non-operative management Pain control Hand sx consulted- applied steri-strips to hand lac and agreed with non-op management OT NWB RUE Plan of care discussed with patient and family at bedside. Case management consulted to assist with discharge planning. Plan to DC to [place] in 1-2 days. Fiorella Hodges [facility] Jul 04, 2017 12:42
[2017-07-04] MEDS: METHOCARBAMOL 500 MG TAB PO SCH ×2 (13:41→20:32)
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
[2017-07-05] MEDS: ACETAMINOPHEN/HYDROcodone 325 MG/10 MG TAB PO PRN ×3 (03:27→13:22)
[2017-07-05 03:30] VITALS: BP 134/63; PULSE 120; RESP 19; TEMP 98.2; O2SAT 91
[2017-07-05] MEDS: METHOCARBAMOL 500 MG TAB PO SCH ×2 (06:07→13:21)
[2017-07-05 07:52] VITALS: BP 116/56; PULSE 120; RESP 18; TEMP 98.2; O2SAT 90
[2017-07-05] MEDS: DOCUSATE SODIUM 50 MG/SENNA 8.6 MG TAB PO SCH (09:28)
[2017-07-05] MEDS: ENOXAPARIN SODIUM 30 MG/0.3 ML SYRINGE SQ SCH (09:28)
[2017-07-05] MEDS: FAMOTIDINE 20 MG TAB PO SCH (09:28)
[2017-07-05] MEDS: ASCORBIC ACID 500 MG TAB PO SCH (09:28)
[2017-07-05] MEDS: CHOLECALCIFEROL (VIT D3) 1000 UNIT TAB PO SCH (09:28)
[2017-07-05] MEDS: CALCIUM/VITAMIN D 250 MG/125 U TAB PO SCH ×2 (09:28→13:00)
--- NOTE | 2017-07-05 09:39 | PD.ORT.PN ---
Subjective Subjective Remarks Pain controlled no new complaints Objective Vitals Vital Signs Date Time Temp Pulse Resp B/P Pulse Ox O2 Delivery O2 Flow Rate FiO2 07/05/17 07:52 98.2 120 18 116/56 90 07/05/17 03:30 98.2 120 19 134/63 91 07/04/17 23:38 97.2 102 19 136/69 91 07/04/17 21:21 90 Nasal Cannula 2.00 07/04/17 20:58 96.7 112 18 158/84 91 07/04/17 16:00 98.3 110 18 140/80 96 07/04/17 11:49 98.7 108 18 150/75 95 07/04/17 11:16 94 Nasal Cannula 3.00 I/O 07/04/17 07/04/17 07/04/17 07/05/17 07/05/17 07/05/17 06:59 14:59 22:59 06:59 14:59 22:59 Intake Total 480 ml 960 ml 480 ml 480 ml Balance 480 ml 960 ml 480 ml 480 ml Intake Oral 480 ml 960 ml 480 ml 480 ml # Voids 3 4 2 1 # Bowel Movements 0 0 0 0 Result Diagram: 07/03/17 0859 07/03/17 0859 Imaging Last 24 hours Impressions Chest X-Ray 07/02/17 0600 Signed Impressions: Service Date/Time: Sunday, July 02, 2017 05:52 - CONCLUSION: No acute disease. Tony Tolentino MD Pelvis X-Ray 07/01/171941 Signed Impressions: Service Date/Time: Saturday, July 01, 2017 19:07 - CONCLUSION: 1. See CT report. Sacral and acetabular fracture not well evaluated. Viraj Worthy MD Head CT 07/01/171941 Signed Impressions: Service Date/Time: Saturday, July 01, 2017 19:56 - CONCLUSION: 1. No acute intracranial abnormalities. Viraj Worthy MD Chest X-Ray 07/01/171941 Signed Impressions: Service Date/Time: Saturday, July 01, 2017 19:07 - CONCLUSION: 1. No acute findings. Dependent atelectasis in the lungs. Viraj Worthy MD Chest CT 07/01/171941 Signed Impressions: Service Date/Time: Saturday, July 01, 2017 20:03 - CONCLUSION: 1. Mildly displaced sternal fracture with mediastinal hematoma anteriorly measuring up to about 1.8 cm in thickness. No evidence for traumatic aortic injury. No pneumothorax or hemothorax. Viraj Worthy MD Cervical Spine CT 07/01/171941 Signed Impressions: Service Date/Time: Saturday, July 01, 2017 19:56 - CONCLUSION: 1. Nondisplaced fracture through left lateral mass of C6 extending into the left pedicle. No other cervical spine fractures. No spondylolisthesis. Viraj Worthy MD Abdomen/Pelvis CT 07/01/171941 Signed Impressions: Service Date/Time: Saturday, July 01, 2017 20:03 - CONCLUSION: 1. Relatively nondisplaced fractures through the right sacral ala and left acetabulum. No dislocation. No solid visceral injury identified within the abdomen or pelvis. Viraj Worthy MD Objective Remarks RUE: +sugar tong splint. NVI with good sensation to fingers. good finger extension. RLE: dressings clean and dry. intact. NVI. neg carol. stiffness to ankle dorsiflexion. Left lower extremity: Mild pain with forward flexion and internal/external rotation of the hip. Distally intact sensation with strong dorsiflexion plantar flexion foot Assessment & Plan Assessment and Plan 1) Left Nondisplaced Acetabulum Fx - nonop 2) Right Sacral fx - nonop 3) Right Radial Styloid fx - nonop 4) right Scaphoid Fx - nonop -NWB -maintain splint 5) Right Tibial shaft fx s/p IMN - POD 3 -TTWB BLE for transfers only -daily dressing changes right leg -lovenox for DVT prophylaxis X-rays today of pelvis with judet views Discharge planning, orthopedically cleared for dischargerehabilitation placement Follow-up with Dr. Mejia or PA in 2 weeks Ayo Miguel Jr. Jul 05, 2017 09:39
[2017-07-05] MEDS ORDERED: BENA25CA4 PO (10:37)
[2017-07-05] MEDS ORDERED: ERGO1CAP30 PO (10:37)
[2017-07-05] MEDS ORDERED: HYDR-3583 PO (10:37)
[2017-07-05] MEDS ORDERED: METH500T3 PO (10:37)
[2017-07-05] MEDS ORDERED: SENN1TAB PO (10:37)
[2017-07-05] MEDS ORDERED: VITA1000 PO (10:37)
[2017-07-05] MEDS ORDERED: FENT75T T-DERMAL (10:37)
[2017-07-05] MEDS ORDERED: CALC250 PO (10:37)
[2017-07-05] MEDS ORDERED: VITA500T2 PO (10:37)
[2017-07-05] MEDS ORDERED: ENOX30P SQ (10:37)
[2017-07-05 11:25] VITALS: O2SAT 95
[2017-07-05 11:38] VITALS: BP 145/82; PULSE 107; RESP 18; TEMP 98.4; O2SAT 96
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
--- NOTE | 2017-07-05 14:02 | RADRPT ---
EXAM DATE/TIME: 07/05/2017 12:50 [facility] COMPARISON: No previous studies available for comparison. INDICATIONS : Follow up pelvic fracture. MEDICAL HISTORY : None. SURGICAL HISTORY : None. ENCOUNTER: Subsequent ACUITY: 4 - 6 days PAIN SCORE: 5/10 LOCATION: Left pelvis FINDINGS: Examination of the pelvis demonstrates no evidence of fracture or dislocation. Bony mineralization i s normal. There is no widening of the sacroiliac joints. No foreign body is identified. There is al ignment of both hip joints. There is good alignment of the SI joints and pubic symphysis. CONCLUSION: Normal examination for a patient of this age. Nito Reynolds MD on July 05, 2017 at 14:01 Board Certified Radiologist. This report was verified electronically.
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
== END 2017-07-05 15:17 | DRG 958 ==
LOC: NEPI 19:39 → NEDA 20:02 → EDBD 20:02 → MERGE 20:02 → N06B 22:04
PROVIDERS: ADMIT Surgery Trauma Surgery; ATTEND Surgery Trauma Surgery
PROC: 0QSJXZZ Reposition Right Fibula, External Approach (ICD-10-PCS; principal; 2017-07-01)
PROC: 0QSGXZZ Reposition Right Tibia, External Approach (ICD-10-PCS; 2017-07-01)
PROC: 0QSG06Z Reposition Right Tibia with Intramedullary Internal Fixation Device, Open Approach (ICD-10-PCS; 2017-07-02)
DX: S82.201A Unspecified fracture of shaft of right tibia, initial encounter for closed fracture (principal); S27.1XXA Traumatic hemothorax, initial encounter; S32.415A Nondisplaced fracture of anterior wall of left acetabulum, initial encounter for closed fracture; S12.501A Unspecified nondisplaced fracture of sixth cervical vertebra, initial encounter for closed fracture; S32.119A Unspecified Zone I fracture of sacrum, initial encounter for closed fracture; S22.20XA Unspecified fracture of sternum, initial encounter for closed fracture; S52.511A Displaced fracture of right radial styloid process, initial encounter for closed fracture; S82.401A Unspecified fracture of shaft of right fibula, initial encounter for closed fracture; S01.511A Laceration without foreign body of lip, initial encounter; S62.021A Displaced fracture of middle third of navicular [scaphoid] bone of right wrist, initial encounter for closed fracture; V48.5XXA Car driver injured in noncollision transport accident in traffic accident, initial encounter; S61.421A Laceration with foreign body of right hand, initial encounter; F10.120 Alcohol abuse with intoxication, uncomplicated; Y90.6 Blood alcohol level of 120-199 mg/100 ml; R00.0 Tachycardia, unspecified; R50.9 Fever, unspecified
CPT/HCPCS: 70450; 70486; 71010; 71260; 72125; 72141; 72170; 72190; 73100; 73120; 73560; 73590; 73600; 74177; 76000; 80048; 80307; 82435; 82565; 82947; 84132; 84295; 84484; 84520; 85025; 85610; 85730; 86077; 86850; 86870; 86900; 86901; 86920; 86921; 86922; 87641; 93005; 93306; 94150; A0431-QM-SH; A0436-QM-SH; C1713; C1769; J0131; J0690; J1170; J1580; J1650; J1885; J2175; J2250; J2270; J2405; J2710; J3010; J3370; J7050; J7120; L0150; L0172; Q9967

== ENCOUNTER 2017-07-06 08:15 | Inpatient (IN) | payer OTHER ==
[~2017-07-06] VITALS: Ht 195.6 cm; Wt 105.4 kg
[2017-07-06] VITALS (9 sets, daily range): BP systolic 128–145; BP diastolic 59–71; PULSE 102–138; RESP 16–27; TEMP 99.2–101.9; O2SAT 96–99
[~2017-07-06 08:15] MED LIST changes: +BENA25CA4 PO; +CALC250 PO; +ENOX30P SQ; +ERGO1CAP30 PO; +FENT75T T-DERMAL; +HYDR-3583 PO; +METH500T3 PO; -MORPHINE SULFATE 4 MG/ML INJ IV PUSH ONE; -ONDANSETRON HCL 4 MG/2 ML VIAL IV PUSH ONE; +SENN1TAB PO; +VITA1000 PO; +VITA500T2 PO; +WHEEMIS3; +XARE10TA PO; -Z.0.NO CURRENT MEDS; +platform walker
[2017-07-06] MEDS: SODIUM CHLOR 0.9% 1000 ML INJ 1,000 ML IV SCH ×2 (08:30→20:10)
[2017-07-06] MEDS ORDERED: LACTULOSE SYRUP 20 GM/30 ML CUP PO PRN (08:30)
[2017-07-06] MEDS ORDERED: SENNOSIDES 8.6 MG TAB PO PRN (08:30)
[2017-07-06] MEDS ORDERED: VANCOMYCIN INJ 1,000 MG in SODIUM CHLOR 0.9% 250 ML INJ 250 ML IV ONE (08:30)
[2017-07-06] MEDS ORDERED: RESP: ALBUTEROL 2.5 MG/IPRATROPIUM 0.5 MG NEB (PRN) INH (08:30)
[2017-07-06] MEDS ORDERED: MAGNESIUM HYDROXIDE SUSP 30 ML CUP PO PRN (08:30)
[2017-07-06] MEDS ORDERED: BISACODYL 10 MG SUPP RECTAL PRN (08:30)
[2017-07-06] MEDS ORDERED: CHLORHEXIDINE GLUCONATE 2 % 1 PACK (2 CLOTHS) TOP PRN (08:30)
[2017-07-06] MEDS ORDERED: MISCELLANEOUS NURSING INFORMATION XX SCH (08:30)
[2017-07-06] MEDS ORDERED: MORPHINE SULFATE 4 MG/ML INJ IV PUSH PRN (08:45)
[2017-07-06] MEDS ORDERED: HEPARIN SODIUM - SQ 10,000 UNITS/ML VIAL SQ SCH (09:00)
[2017-07-06] MEDS ORDERED: PANTOPRAZOLE SODIUM 40 MG VIAL IV SCH (09:00)
--- NOTE | 2017-07-06 09:24 | RADRPT ---
EXAM DATE/TIME: 07/06/2017 08:32 [facility] COMPARISON: CHEST SINGLE AP, July 02, 2017, 5:52. INDICATIONS : Shortness of breath. MEDICAL HISTORY : None. SURGICAL HISTORY : None. ENCOUNTER: Subsequent ACUITY: 4 - 6 days PAIN SCORE: 0/10 LOCATION: chest FINDINGS: Portable AP view of the chest demonstrates a normal-sized cardiac silhouette. There are interstitial opacities in the mid and lower lung zones bilaterally with bibasilar atelectasis. No pleural effusion or pneumothorax is identified. Bones demonstrate no acute finding. CONCLUSION: Bilateral lower lung zone interstitial opacities with atelectasis. Changes may represent pulmonary ed sharon in the appropriate clinical setting. Lambert Pierre MD on July 06, 2017 at 9:19 Board Certified Radiologist. This report was verified electronically.
[2017-07-06] MEDS: ENOXAPARIN SODIUM 30 MG/0.3 ML SYRINGE SQ SCH ×2 (09:47→20:10)
[2017-07-06] MEDS: DOCUSATE SODIUM 50 MG/SENNA 8.6 MG TAB PO SCH ×2 (09:48→20:10)
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
[2017-07-06 10:36] LABS: ALT (GPT) 24 U/L (12-78); ANION GAP 9 MEQ/L (5-15); AST (GOT) 38 U/L (15-37); BICARBONATE 27.5 MEQ/L (21.0-32.0); BLOOD UREA NITROGEN 12 MG/DL (7-18); CHLORIDE 98 MEQ/L (98-107); GLOMERULAR FILTRATION RATE 99 ML/MIN (>89); MAGNESIUM 2.3 MG/DL (1.5-2.5); POTASSIUM 4.4 MEQ/L (3.5-5.1); SODIUM (NA) 134 MEQ/L (136-145)
[2017-07-06 10:38] LABS: ALKALINE PHOSPHATASE 51 U/L (45-117); TOTAL BILIRUBIN ADULT 0.5 MG/DL (0.2-1.0)
[2017-07-06 10:39] LABS: BLOOD, URINE NEG (NEG); COMMENT (UR) CATH-CULT NOT IND; CULTURE IF INDICATED CATH CULTURE NOT IND; GLUCOSE,URINE NEG (NEG); KETONE, URINE NEG (NEG); NITRITE,URINE NEG (NEG); URINE COLOR YELLOW (YELLW/STRAW)
[2017-07-06 11:04] LABS: CKMB 0.6 NG/ML (0.5-3.6)
[2017-07-06] MEDS: PIPERACIL-TAZO 4.5 GM PREMIX 100 ML IV SCH ×3 (11:44→23:02)
[2017-07-06] MEDS: RESP: ALBUTEROL 2.5 MG/IPRATROPIUM 0.5 MG NEB (SCH) INH ×3 (12:00→21:00)
[2017-07-06] MEDS ORDERED: IOHEXOL 350 MG/ML 10 ML VIAL (for RAD DIAG) IV ONE (12:53)
[2017-07-06 13:08] LABS: AUTOMATED NEUTROPHIL # 5.3 TH/MM3 (1.8-7.7); BASOPHIL % 0.6 % (0.0-2.0); EOSINOPHIL % 0.3 % (0.0-4.0); HEMATOCRIT 28.6 % (39.0-51.0); HEMO FLAGS DIFF FINAL; LYMPH % 11.2 % (9.0-44.0); LYMPHOCYTE # 0.8 TH/MM3 (1.0-4.8); MEAN CELL VOLUME 87.9 FL (80.0-100.0); MEAN CORPUSCULAR HEMOGLOBIN 30.5 PG (27.0-34.0); MEAN CORPUSCULAR HGB CONC 34.7 % (32.0-36.0); MONO % 15.5 % (0.0-8.0); NEUT % 72.4 % (16.0-70.0); PLATELET COUNT 209 TH/MM3 (150-450); RED BLOOD COUNT 3.26 MIL/MM3 (4.50-5.90); RED CELL DISTRIBUTION WIDTH 12.2 % (11.6-17.2); WHITE BLOOD COUNT 7.4 TH/MM3 (4.0-11.0)
--- NOTE | 2017-07-06 13:16 | RADRPT ---
EXAM DATE/TIME: 07/06/2017 12:45 [facility] COMPARISON: No previous studies available for comparison. INDICATIONS : Short of breath, evaluate for pulmonary emoblism. IV CONTRAST: 73 cc Omnipaque 350 (iohexol) IV RADIATION DOSE: 23.30 CTDIvol (mGy) MEDICAL HISTORY : None SURGICAL HISTORY : Tonsillectomy. ENCOUNTER: Initial ACUITY: 4 - 6 days PAIN SCALE: 4/10 LOCATION: chest TECHNIQUE: Volumetric scanning of the chest was performed using a pulmonary embolism protocol MIP images were re constructed. Using automated exposure control and adjustment of the mA and/or kV according to patien t size, radiation dose was kept as low as reasonably achievable to obtain optimal diagnostic quality images. DICOM format image data is available electronically for review and comparison. Follow-up recommendations for detected pulmonary nodules are based at a minimum on nodule size and pa tient risk factors according to Fleischner Society Guidelines. FINDINGS: PULMONARY ARTERIES: Contrast opacification of the pulmonary vessels is relatively poor which may be for technical reasons . Grossly, no large central PE is identified. Subtle PE would be difficult to exclude. LUNGS: Moderate basilar contusion and/or atelectasis. PLEURAE: Small bilateral effusions. MEDIASTINUM: There is good visualization of the great vessels of the middle mediastinum. No evidence of mediastin al or hilar adenopathy/mass. MUSCULOSKELETAL: Within normal limits for patient age. MISCELLANEOUS: The visualized upper abdominal organs demonstrate no acute abnormality. CONCLUSION: Technically suboptimal exam grossly negative for PE Lambert Jara MD on July 06, 2017 at 13:07 Board Certified Radiologist. This report was verified electronically.
[2017-07-06] MEDS: ACETAMINOPHEN/HYDROcodone 325 MG/7.5 MG TAB PO PRN ×2 (17:15→23:02)
[2017-07-06] MEDS: CHLORHEXIDINE GLUCONATE 2 % 1 PACK (2 CLOTHS) TOP SCH (20:11)
[2017-07-07] VITALS (11 sets, daily range): BP systolic 112–156; BP diastolic 56–79; PULSE 98–121; RESP 15–29; TEMP 97.9–99.7; O2SAT 93–100
[2017-07-07] MEDS: RESP: ALBUTEROL 2.5 MG/IPRATROPIUM 0.5 MG NEB (SCH) INH ×6 (00:31→20:06)
[2017-07-07 03:43] LABS: BASOPHIL % 0.3 % (0.0-2.0); EOSINOPHIL # 0.2 TH/MM3 (0-0.4); EOSINOPHIL % 3.1 % (0.0-4.0); HEMATOCRIT 26.5 % (39.0-51.0); HEMO FLAGS DIFF FINAL; LYMPH % 12.5 % (9.0-44.0); LYMPHOCYTE # 0.8 TH/MM3 (1.0-4.8); MEAN CELL VOLUME 88.6 FL (80.0-100.0); MEAN CORPUSCULAR HEMOGLOBIN 30.2 PG (27.0-34.0); MEAN CORPUSCULAR HGB CONC 34.1 % (32.0-36.0); MONO % 19.7 % (0.0-8.0); NEUT % 64.4 % (16.0-70.0); PLATELET COUNT 197 TH/MM3 (150-450); RED BLOOD COUNT 2.99 MIL/MM3 (4.50-5.90); RED CELL DISTRIBUTION WIDTH 12.3 % (11.6-17.2); WHITE BLOOD COUNT 6.3 TH/MM3 (4.0-11.0)
[2017-07-07 04:06] LABS: BICARBONATE 27.2 MEQ/L (21.0-32.0); POTASSIUM 4.1 MEQ/L (3.5-5.1)
[2017-07-07] MEDS: PIPERACIL-TAZO 4.5 GM PREMIX 100 ML IV SCH ×4 (05:04→22:07)
[2017-07-07] MEDS: SODIUM CHLOR 0.9% 1000 ML INJ 1,000 ML IV SCH (05:04)
[2017-07-07] MEDS: ACETAMINOPHEN/HYDROcodone 325 MG/7.5 MG TAB PO PRN ×3 (05:05→18:34)
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
[2017-07-07] MEDS ORDERED: guaiFENesin E.R. 600 MG TAB PO ONE (10:00)
[2017-07-07] MEDS ORDERED: PNEUMOCOCCAL POLYVALENT INJ 25 MCG/0.5 ML SYR IM ONE (10:00)
[2017-07-07] MEDS: DOCUSATE SODIUM 50 MG/SENNA 8.6 MG TAB PO SCH ×2 (10:06→20:14)
[2017-07-07] MEDS: ENOXAPARIN SODIUM 30 MG/0.3 ML SYRINGE SQ SCH ×2 (10:07→20:15)
[2017-07-07] MEDS: ACETAMINOPHEN 325 MG TAB PO PRN (10:16)
[2017-07-07] MEDS: guaiFENesin E.R. 600 MG TAB PO SCH (20:14)
[2017-07-08] VITALS (8 sets, daily range): BP systolic 123–150; BP diastolic 67–78; PULSE 86–117; RESP 18; TEMP 97.2–99.7; O2SAT 95–98
[2017-07-08] MEDS: ACETAMINOPHEN/HYDROcodone 325 MG/7.5 MG TAB PO PRN ×2 (00:32→06:14)
[2017-07-08] MEDS: PIPERACIL-TAZO 4.5 GM PREMIX 100 ML IV SCH ×4 (03:03→21:17)
[2017-07-08] MEDS: CHLORHEXIDINE GLUCONATE 2 % 1 PACK (2 CLOTHS) TOP SCH (03:03)
[2017-07-08] MEDS: RESP: ALBUTEROL 2.5 MG/IPRATROPIUM 0.5 MG NEB (SCH) INH ×6 (03:29→20:05)
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
[2017-07-08] MEDS: PANTOPRAZOLE SOD 40 MG DELAYED RELEASE TAB PO SCH (09:45)
[2017-07-08] MEDS: DOCUSATE SODIUM 50 MG/SENNA 8.6 MG TAB PO SCH ×2 (09:45→21:13)
[2017-07-08] MEDS: guaiFENesin E.R. 600 MG TAB PO SCH ×2 (09:46→21:13)
[2017-07-08] MEDS: ENOXAPARIN SODIUM 30 MG/0.3 ML SYRINGE SQ SCH ×2 (09:49→21:14)
[2017-07-08] MEDS ORDERED: MORPHINE SULFATE 4 MG/ML INJ IV PUSH PRN ×2 (12:00)
[2017-07-08] MEDS ORDERED: ACETAMINOPHEN/HYDROcodone 325 MG/5 MG TAB PO PRN (14:00)
[2017-07-08] MEDS: ACETAMINOPHEN/HYDROcodone 325 MG/5 MG TAB PO PRN ×3 (15:23→21:14)
--- NOTE | 2017-07-08 16:54 | RADRPT ---
EXAM DATE/TIME: 07/08/2017 16:31 [facility] COMPARISON: CT BRAIN W/O CONTRAST, July 01, 2017, 19:56. INDICATIONS : Intermittent headaches. RADIATION DOSE: 47.72 CTDIvol (mGy) MEDICAL HISTORY : None SURGICAL HISTORY : Tonsillectomy. ENCOUNTER: Initial ACUITY: 1 day PAIN SCALE: 4/10 LOCATION: Bilateral cranial TECHNIQUE: Multiple contiguous axial images were obtained of the head. Using automated exposure control and adj ustment of the mA and/or kV according to patient size, radiation dose was kept as low as reasonably a chievable to obtain optimal diagnostic quality images. DICOM format image data is available electro nically for review and comparison. FINDINGS: CEREBRUM: The ventricles are normal for age. No evidence of midline shift, mass lesion, hemorrhage or acute in farction. No extra-axial fluid collections are seen. POSTERIOR FOSSA: The cerebellum and brainstem are intact. The 4th ventricle is midline. The cerebellopontine angle i s unremarkable. EXTRACRANIAL: The visualized portion of the orbits is intact. SKULL: The calvaria is intact. No evidence of skull fracture. CONCLUSION: No acute disease. No significant change has occurred. Leland Osborn MD on July 08, 2017 at 16:52 Board Certified Radiologist. This report was verified electronically.
[2017-07-09] VITALS: BP 147/74; PULSE 94; RESP 18; TEMP 97.7; O2SAT 99
[2017-07-09] MEDS: RESP: ALBUTEROL 2.5 MG/IPRATROPIUM 0.5 MG NEB (SCH) INH ×5 (03:51→16:00)
[2017-07-09 04:00] VITALS: BP 135/73; PULSE 107; RESP 16; TEMP 97.9; O2SAT 97
[2017-07-09] MEDS: CHLORHEXIDINE GLUCONATE 2 % 1 PACK (2 CLOTHS) TOP SCH (04:00)
[2017-07-09] MEDS: ACETAMINOPHEN/HYDROcodone 325 MG/5 MG TAB PO PRN ×2 (04:45→11:41)
[2017-07-09] MEDS: PIPERACIL-TAZO 4.5 GM PREMIX 100 ML IV SCH ×3 (04:45→16:02)
[2017-07-09 07:52] VITALS: O2SAT 97
[2017-07-09 08:00] VITALS: BP 142/70; PULSE 110; PULSE 87; RESP 18; TEMP 98.2; O2SAT 97
[2017-07-09] MEDS: DOCUSATE SODIUM 50 MG/SENNA 8.6 MG TAB PO SCH (09:05)
[2017-07-09] MEDS: PANTOPRAZOLE SOD 40 MG DELAYED RELEASE TAB PO SCH (09:05)
[2017-07-09] MEDS: guaiFENesin E.R. 600 MG TAB PO SCH (09:05)
[2017-07-09] MEDS: ENOXAPARIN SODIUM 30 MG/0.3 ML SYRINGE SQ SCH (09:07)
[2017-07-09] MEDS: ACETAMINOPHEN 325 MG TAB PO PRN (10:13)
[2017-07-09 12:00] VITALS: BP 140/72; PULSE 99; RESP 18; TEMP 97.4; O2SAT 98
[2017-07-09 16:00] VITALS: BP 130/71; PULSE 103; RESP 18; TEMP 98; O2SAT 100
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
[2017-07-09] MEDS ORDERED: guaiFENesin ER PO (16:04)
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
== END 2017-07-09 19:11 | DRG 195 ==
LOC: HIMW 08:15 → N04A 07-07 12:05
PROVIDERS: ADMIT Internal Medicine Critical Care Medicine; ATTEND Internal Medicine Critical Care Medicine
DX: J18.9 Pneumonia, unspecified organism (principal); S52.511D Displaced fracture of right radial styloid process, subsequent encounter for closed fracture with routine healing; S82.201D Unspecified fracture of shaft of right tibia, subsequent encounter for closed fracture with routine healing; S82.401D Unspecified fracture of shaft of right fibula, subsequent encounter for closed fracture with routine healing; S12.500D Unspecified displaced fracture of sixth cervical vertebra, subsequent encounter for fracture with routine healing; S32.402D Unspecified fracture of left acetabulum, subsequent encounter for fracture with routine healing; S32.10XD Unspecified fracture of sacrum, subsequent encounter for fracture with routine healing; S22.20XD Unspecified fracture of sternum, subsequent encounter for fracture with routine healing
CPT/HCPCS: 70450; 71010; 71275; 80048; 80053; 81001; 82550; 82552; 83735; 84100; 84484; 85025; 87040; 87641; 94640; 94664; C9113; J1650; J2270; J2543; J3370; J7030; J7050; Q9967